=== PATIENT | male | born 1950 | race Caucasian/White ===

== ENCOUNTER → 2017-10-06 | Outpatient (CLI) | payer MEDICARE, OTHER ==
--- NOTE | 2017-10-06 15:57 | NUR ---
PATIENT PRE BLOOD VTIALS COMPLETE SEE DOCUMENTATION. PATIENT ASSESSMENT COMPLETE. IV STARTED IN LEFT ARM. NO CONCERNS AT THIS TIME.
[2017-10-06 15:58] VITALS: BP 174/54
[2017-10-06 18:15] VITALS: BP 184/43
--- NOTE | 2017-10-06 18:22 | NUR ---
BLOOD STARTED ON PATIENT. PRE-VITALS TAKEN SEE DOCUMENTAITON. NO CONCERNS AT THIS TIME.
[2017-10-06 18:30] VITALS: BP 175/51
[2017-10-06 18:45] VITALS: BP 171/36
[2017-10-06 19:03] VITALS: BP 175/40
[2017-10-06 19:19] VITALS: BP 175/38
== END ==
LOC: TRNFUSION 11:00
DX: D64.9 Anemia, unspecified (principal); R79.89 Other specified abnormal findings of blood chemistry

== ENCOUNTER 2017-11-27 15:08 | Emergency (ER) | payer MEDICARE, OTHER ==
[~2017-11-27] VITALS: Wt 68.0 kg
[2017-11-27 15:39] LABS: BASO % 0.4 % (0.0-1.0); EOS # 0.1 10*3/uL (0.0-0.4); EOS % 1.6 % (1.0-4.0); LYMPH # 0.3 10*3/uL (1.3-4.4); LYMPH % 4.4 % (27.0-41.0); MEAN CELL VOLUME 85.5 fl (80.0-94.0); MEAN CORPUSCULAR HGB 27.7 pg (27.0-31.0); MEAN CORPUSCULAR HGB CONC 32.4 g/dl (33.0-37.0); MEAN PLATELET VOLUME 9.8 fl (9.6-12.3); MONO # 0.5 10*3/uL (0.1-1.0); NEUT # 6.4 10*3/uL (2.3-7.9); NEUT % 86.7 % (47.0-73.0); PLATELET COUNT AUTOMATED 164 10*3/uL (130-400); RED BLOOD COUNT 4.33 10*6/uL (4.50-5.90); RED CELL DISTRI WIDTH 14.6 % (0-14.5); WHITE BLOOD COUNT 7.4 10*3/uL (4.8-10.8)
[2017-11-27 15:49] LABS: ACT PARTIAL THROMBO TIME 28.9 SECONDS (20.8-31.5); INTERNATIONAL NORM RATIO 0.9 (2.0-3.5)
[2017-11-27 15:54] LABS: ALBUMIN 3.6 gm/dl (3.1-4.5); ALKALINE PHOSPHATASE 137 U/L (45-117); BUN 28 mg/dl (7-24); CHLORIDE 97 mmol/L (98-107); LIPASE 125 U/L (73-393); POTASSIUM 4.8 mmol/L (3.5-5.1); SGOT/AST 11 IU/L (3-35); SGPT/ALT 16 U/L (12-78); SODIUM 135 mmol/L (136-145); TOTAL PROTEIN 7.8 gm/dL (6.4-8.2); TROPONIN I < 0.015 ng/ml (<0.045)
== END 2017-11-27 17:18 | disposition short-term general hospital (02) ==
LOC: ED 15:08
PROVIDERS: Emergency Medicine
DX: I63.9 Cerebral infarction, unspecified (principal); J90 Pleural effusion, not elsewhere classified; Z98.890 Other specified postprocedural states; Z89.512 Acquired absence of left leg below knee

== ENCOUNTER → 2018-03-21 | Outpatient (CLI) | payer MEDICARE, OTHER ==
--- NOTE | ~2018-03-21 | EKG ---
[place], [place] ELECTROCARDIOGRAM REPORT NAME: FAIZA CANALES UNIT #: [id number] ROOM: DOCTOR: TAMARA HURST,MYA BIRTHDATE: [birth year] DOS: 03/21/2018 TIME: ____ hours. FINDINGS: 1. Normal sinus rhythm at 66 beats per minute. 2. First degree heart block. 3. Moderate cardiac criteria for LVH with repolarization abnormalities. 4. An abnormal ECG. 5. No previous tracing is available for comparison. MYA MCDONALD MD CM:EKGRPT:ELECTROCARDIOGRAM REPORT [id number] MYA MCDONALD MD
[2018-03-21 15:50] LABS: BASO % 0.2 % (0.0-1.0); EOS # 0.1 10*3/uL (0.0-0.4); EOS % 2.3 % (1.0-4.0); HEMATOCRIT 36.2 % (42.0-52.0); HEMOGLOBIN 11.3 g/dl (14.0-18.0); LYMPH # 0.4 10*3/uL (1.3-4.4); MEAN CORPUSCULAR HGB 28.1 pg (27.0-31.0); MEAN CORPUSCULAR HGB CONC 31.2 g/dl (33.0-37.0); MEAN PLATELET VOLUME 9.7 fl (9.6-12.3); MONO # 0.5 10*3/uL (0.1-1.0); NEUT # 3.7 10*3/uL (2.3-7.9); NEUT % 78.1 % (47.0-73.0); PLATELET COUNT AUTOMATED 190 10*3/uL (130-400); RED BLOOD COUNT 4.02 10*6/uL (4.50-5.90); WHITE BLOOD COUNT 4.7 10*3/uL (4.8-10.8)
[2018-03-21 16:03] LABS: CREATININE 3.95 mg/dL (0.70-1.30); POTASSIUM 3.9 mmol/L (3.5-5.1)
== END | disposition home or self-care (01) ==
LOC: LAB 14:44
PROVIDERS: Surgery
DX: I73.9 Peripheral vascular disease, unspecified (principal)